=== PATIENT | female | born 1985 | race African-American/Black ===

== ENCOUNTER 2018-01-27 01:37 | Emergency (ER) | payer BC, OTHER ==
[~2018-01-27] VITALS: Ht 154.9 cm; Wt 70.8 kg
[~2018-01-27 01:37] MED LIST: AUGMENTIN 875875 MG PO; TRIAMCINOLONE A80 G2 TOP
[2018-01-27 03:48] LABS: URINE BILIRUBIN NEGATIVE (Negative); URINE BLOOD NEGATIVE (Negative); URINE CLARITY CLEAR; URINE COLOR YELLOW; URINE GLUCOSE-RANDOM* NEGATIVE (Negative); URINE KETONES 2+ (Negative); URINE LEUKOCYTES-REFLEX NEGATIVE (Negative); URINE NITRITE-REFLEX NEGATIVE (Negative); URINE PROTEIN (DIPSTICK) NEGATIVE (Negative); URINE SPECIFIC GRAVITY 1.025 (1.005-1.035); URINE UROBILINOGEN 0.2 E.U./dl (0.2-1.0)
[2018-01-27 04:17] LABS: ABSOLUTE NEUTROPHILS 7.1 thou/uL (1.4-8.2); BASOPHILS 0.5 % (0.0-2.0); EOSINOPHILS 0.6 % (0.0-3.0); HEMATOCRIT 35.7 % (37.0-47.0); HEMOGLOBIN 12.3 gm/dL (12.0-15.0); MCH 30.8 pg (26.0-34.0); MCHC 34.5 g/dL (28.0-37.0); MCV 89.2 fL (80.0-100.0); MONOCYTES 7.6 % (1.0-8.0); PLATELET COUNT 213 thou/uL (150-400); POLYS 64.3 % (36.0-66.0); RBC 4.01 mil/uL (4.20-5.00); RDW 12.8 % (10.5-14.5)
[2018-01-27 04:23] LABS: CALCIUM 8.4 mg/dL (8.5-10.1); CREATININE 0.7 mg/dL (0.6-1.0); POTASSIUM 3.4 mmol/L (3.5-5.1)
[2018-01-27] MEDS ORDERED: CYCLOBENZAPRINE5 MG PO (05:15)
[2018-01-27 05:36] VITALS: BP 118/65
== END 2018-01-27 05:37 | disposition home or self-care (01) ==
LOC: ER 01:37
PROVIDERS: Emergency Medicine
DX: O26.90 Pregnancy related conditions, unspecified, unspecified trimester (principal); Z3A.00 Weeks of gestation of pregnancy not specified; M54.5 Low back pain; R51 Headache